=== PATIENT | female | born 1965 | race Two or more races ===

== ENCOUNTER 2022-10-02 15:37 | Outpatient (OUT) | payer OTHER, SELFPAY ==
--- NOTE | 2022-10-02 16:30 | MM_ITS ---
Patient: CHERRY BUSTAMANTE Exam Date: 10/02/2022 : 1965 Gender:F Ordering : DR SAMMIE FERRERA . Admission #: [id number] Family : Order #: [id number] CLICK HERE TO VIEW EXAM RADIOLOGY REPORT PROCEDURE: MM TOMOSYNTHESIS SCREENING BI COMPARISON: None. INDICATIONS: Screening mammogram Z12.31 Calculator Name NCI Breast Cancer Risk Assessment Tool 5 Year Breast Cancer Risk n/a% Lifetime Breast Cancer Risk n/a% Personal Breast Cancer Yes, Atypical ductal Hyperplasia Age 55 Personal Ovarian Cancer No Treatments hims clerk Breast Lumpectomy Family Cancers None LOCATION: [facility] BREAST COMPOSITION: Scattered areas fibroglandular density. FINDINGS: DIAGNOSTIC CATEGORY 0--INCOMPLETE: NEED ADDITIONAL IMAGING EVALUATION. Delay in interpretation related to waiting for outside films. The exam was read without outside comparisons which could not be obtained Scattered benign-appearing calcifications are present. Scattered benign-appearing lymph nodes are present. RIGHT BREAST: No significant suspicious finding. Multiple surgical clips from prior procedure. 8.1 mm ill-defined nodule upper outer quadrant, mid breast, spot compression and ultrasound follow-up recommended LEFT BREAST: No significant suspicious finding. RECOMMENDATIONS: ADDITIONAL MAMMOGRAPHIC VIEWS REQUIRED: RIGHT BREAST - spot compression ULTRASOUND: RIGHT BREAST PLEASE NOTE: A NORMAL MAMMOGRAM DOES NOT EXCLUDE THE POSSIBILITY OF BREAST CANCER. A CLINICALLY SUSPICIOUS PALPABLE LUMP SHOULD BE BIOPSIED. Dictated by: Humberto Fuller MD on 10/21/2022 at 09:36 Approved by: Humberto Fuller MD on 10/21/2022 at 09:38
[2022-10-02 16:34] LABS: Basophils Absolute Auto 0.1 10^3/uL (0.0-0.1); Basophils Percent Auto 0.7 % (0.2-2.0); Eosinophils Absolute Auto 0.2 10^3/uL (0.0-0.7); Hemoglobin 13.8 g/dL (12.0-16.0); Immature Granulocytes Abs Auto 0.02 10^3/uL (0.00-0.03); Immature Granulocytes Pct Auto 0.3 % (0.0-0.5); Lymphocytes Absolute Auto 2.1 10^3/uL (1.2-3.8); Lymphocytes Percent Auto 29.5 % (20.5-60.0); Mean Corpuscular HGB Conc 33.7 g/dL (29.9-35.2); Mean Corpuscular Hemoglobin 29.2 pg (26.7-34.0); Mean Corpuscular Volume 86.7 fL (81.0-99.0); Mean Platelet Volume 9.2 fL (9.5-13.5); Monocytes Absolute Auto 0.6 10^3/uL (0.3-0.8); Monocytes Percent Auto 7.8 % (1.7-12.0); Neutrophils Absolute Auto 4.1 10^3/uL (1.4-6.5); Neutrophils Percent Auto 58.7 % (43.0-75.0); Platelet Count 329 10^3/uL (150-450); Red Blood Count 4.73 10^6/uL (4.20-5.40); Red Cell Distribution Width 12.9 % (11.0-15.0); White Blood Count 7.1 10^3/uL (4.0-11.0)
[2022-10-02 17:23] LABS: Estimated Average Glucose 120 mg/dL; Glycohemoglobin A1C 5.8 % (4.5-6.2)
[2022-10-02 17:24] LABS: Alanine Aminotransferase 30 U/L (14-59); Albumin Globulin Ratio 1.1; Albumin Level 3.8 g/dL (3.4-5.0); Alkaline Phosphatase 119 U/L (46-116); Anion Gap 11.7; Aspartate Amino Transferase 12 U/L (15-37); BUN Creatinine Ratio 13.6; Bilirubin Direct 0.1 mg/dL (0.0-0.2); Bilirubin Total 0.2 mg/dL (0.2-1.0); Calcium 9.7 mg/dL (8.5-10.1); Carbon Dioxide 29.1 mmol/L (21.0-32.0); Chloride 104 mmol/L (98-107); Chol HDL Ratio 3.9; Cholesterol 207 mg/dL (<=200); Estimated GFR (African America >60 (>=60); Estimated GFR (Non-African Ame 55 (>=60); Globulin 3.4 g/dL; Glucose 130 mg/dL (74-106); HDL Cholesterol 53 mg/dL (40-60); Potassium 3.8 mmol/L (3.5-5.1); Sodium 141 mmol/L (136-145); Thyroid Stimulating Hormone 0.992 uIU/mL (0.358-3.740); Total Protein 7.2 g/dL (6.4-8.2); Triglycerides 179 mg/dL (<=150); VLDL CHOLESTEROL 35.8 mg/dL
== END 2022-10-02 15:38 | disposition home or self-care (01) ==
LOC: MAMMO 15:44
PROVIDERS: PCP Family Medicine; Visit Provider Family Medicine
DX: Z00.00 Encounter for general adult medical examination without abnormal findings (principal); Z12.31 Encounter for screening mammogram for malignant neoplasm of breast; N63.11 Unspecified lump in the right breast, upper outer quadrant; R73.03 Prediabetes; E66.9 Obesity, unspecified
CPT/HCPCS: 36415; 77063; 77067; 80048; 80061; 80076; 83036; 84443; 85025

== ENCOUNTER 2022-11-04 15:40 | Outpatient (OUT) | payer OTHER, SELFPAY ==
--- NOTE | 2022-11-04 15:46 | US_ITS ---
Patient: CHERRY BUSTAMANTE Exam Date: 11/04/2022 : 1965 Gender:F Ordering : DR Avi Da Silva . Admission #: [id number] Family : Order #: [id number] CLICK HERE TO VIEW EXAM RADIOLOGY REPORT PROCEDURE: US BREAST RT LIMITED COMPARISON: MM TOMOSYNTHESIS SCREENING BI, 10/02/2022. INDICATIONS: Abnormal mammogram R92.8 TECHNIQUE: Breast ultrasound was performed, with evaluation focusing only on specific areas of concern. FINDINGS: DIAGNOSTIC CATEGORY 3--PROBABLY BENIGN FINDING. THE FOLLOWING FINDING(S) HAS A HIGH PROBABILITY OF A BENIGN ETIOLOGY: RIGHT BREAST: At the 10 o'clock position 6.5 cm from the nipple is a slightly triangular-shaped 13 x 6 x 6 mm area which appears to be composed of a collection of tiny cysts. As a precautionary measure follow-up ultrasound evaluation of the right breast in 6 months is recommended to document stability. RECOMMENDATIONS: SHORT TERM FOLLOW-UP ULTRASOUND RIGHT BREAST IN 6 MONTHS. PLEASE NOTE: A NORMAL ULTRASOUND EXAMINATION DOES NOT EXCLUDE THE POSSIBILITY OF BREAST CANCER. A CLINICALLY SUSPICIOUS PALPABLE LUMP SHOULD BE BIOPSIED. Dictated by: Nishant Garcia M.D. on 11/04/2022 at 16:06 Approved by: Nishant Garcia M.D. on 11/04/2022 at 16:08
== END 2022-11-04 15:41 | disposition home or self-care (01) ==
LOC: US 15:41
PROVIDERS: PCP Family Medicine; Visit Provider Family Medicine
DX: R92.8 Other abnormal and inconclusive findings on diagnostic imaging of breast (principal)
CPT/HCPCS: 76642